=== PATIENT | male | born 1965 | race Two or more races ===

== ENCOUNTER 2019-08-17 10:00 | Outpatient (AMBR) | payer MEDICARE, MEDICAID, SELFPAY ==
--- NOTE | 2019-07-31 11:05 | PT.OIERPT ---
PT OP Initial Eval Patient Information Pediatric or Adult Patient: Adult PT >13 Visit Reasons: neck Medical Diagnosis: Cervical stenosis and DDD Treatment Dx #1: Neck pain Start of Care: 07/31/19 Date of Onset: 07/13/2019 Initial Assessment Subjective 54 y/o male who had a fall and hx of rotator cuff repair on bilateral UE. Patient noticed that after that fall patient started to hurt his neck after and was aggravating. Mostly on the L side of his neck. Patient had pain from cervical area going down to his thoracic spine. Patient has (+) radiculopathy on his LUE. Mostly the pain on his L para cervical area. Patient is complaining of headache as well. The MD mentioned that they are recommending a steroid injection. He also has lower back pain. Patient has constant pain on his cervical area worst at night. At best pain is at 3/10 and at worst is 8/10. He takes norco 3-4times a day but doesn't relieve him completely from pain. Cervical spine CT shows C4-C5 moderate right mild left neural foraminal stenosis. C5-C6 moderate to advanced bilateral neural foraminal stenosis Objective LOM Cervical Rotation towards the L, Left and R lateral flexion. Pain in all movement. R > L; cervical rotation L and R, lateral flexion L and R ; Cervical extension pain > cervical flexion. PS 8/10 at worst and 3/10 (+) rounded shoulder and forward head posture MMT Cervical flexors , extensors, lateral flexors and rotation = 4/5 Assessment Patient will need physical therapy for strengthening of his Cervical muscles. modalities for pain management and manual therapy for stretching and STM. mechanical traction due to patient has (+) radiculopathy on his L UE most probably causes by ganglionic compression and stenosis of his cervical spine. Will see patient for 10-15visits, if there is no significant progress, patient will be referred back to his PCP. Patient verbalized understanding. All questions answered. Short Term and Skilled Nursing Goals 1. to decrease pain on his cervical area to 02/10 x 8 weeks. 2. To increase MMT on his cervical muscles to 5/5 x 8 weeks 3. I with HEP Treatment Plan Thera ex Manual tx Modalities (hmp, estim) Mechanical traction Frequency and Duration 2x/wk x 8 weeks Certification Dates: 07/31/2019 to 10/31/2019
--- NOTE | 2019-08-03 09:07 | PT.ODAYNRPT ---
PT Outpatient Daily Note Date of Service: July 31, 2019 OP Daily Note Pediatric or Adult Patient: Adult PT >13 Visit Reasons: neck Outpatient Physical Therapy Treatment Date: 08/03/19 Subjective: No new complaints Patient has tingling on his L hand Objective: pls see FS Assessment: Patient were given modalities and cervical traction and STM on his para cervical muscles. No increase in symptoms noted. Skin check done after therapy and no redness noted. Plan: To continue POC toward goals Pain Present Currently: Yes Length of Time (minutes) of Treatment: 30 Minutes Office Procedures PT Procedures PT Date of Service: 07/31/19 OP PT Eval Mod Complex 30 minutes: Yes
--- NOTE | 2019-08-07 11:23 | PT.ODAYNRPT ---
PT Outpatient Daily Note Date of Service: August 07, 2019 OP Daily Note Pediatric or Adult Patient: Adult PT >13 Visit Reasons: neck Outpatient Physical Therapy Treatment Date: 08/07/19 Subjective: Neck pain today at 3/10 at rest and during movement is more painful especially when turning to his L Objective: pls see FS Assessment: patient were given Hmp with estim, cervical traction and gentle passive stretching. No increase in pain during therapy session. Plan: to continue POC toward goals Length of Time (minutes) of Treatment: 30 Minutes Office Procedures PT Procedures PT Date of Service: 07/31/19 OP PT Eval Mod Complex 30 minutes: Yes
--- NOTE | 2019-08-10 13:59 | PT.ODAYNRPT ---
PT Outpatient Daily Note Date of Service: August 10, 2019 OP Daily Note Visit Reasons: neck Outpatient Physical Therapy Treatment Date: 08/10/19 Subjective: pt states he was sore from last visit but is not sure which activity made him sore. he said it could be from the stretching since that was new last visit. Objective: see flow sheet. Assessment: withheld from the stretching today to avoid increase in soreness. continued with modalities. pt had no complaints during and after modalities. added new exercises to assist with strengthening and improve mobility. pt does use SPC for ambulation. pt does have uneven gait pattern which causes fall risk. pt was able to complete the treatment with no concerns or questions. advised pt about possible soreness. Plan: continue POC per PT. Length of Time (minutes) of Treatment: 30 Minutes STAVE LOG CUT OFF SAW OPERATOR Service Modifier Method I: Divide the number of min of care provided by the STAVE LOG CUT OFF SAW OPERATOR/JYOTI by the total min of care provided then multiply by 100. If greater than 11 percent modifier is required. Method II: Divide the total time of care provided to patient by 10 (round to the nearest whole number) and add 1 min. to set the minimum time requirement. If treatment total was 60 min., then 10% of 6 min Did STAVE LOG CUT OFF SAW OPERATOR provide more than 10% of the care?: Yes PT CQ modifier applied: CQ Modifier applied Office Procedures PT Procedures PT Date of Service: 08/10/19 OP Electrical Stimul Unattended: Yes Therapeutic Exercise 15 minutes: Yes PT Procedures PT Date of Service: 07/31/19 OP PT Eval Mod Complex 30 minutes: Yes PT Procedures PT Date of Service: 08/03/19 OP Electrical Stimul Unattended: Yes Therapeutic Exercise 15 minutes: Yes PT Procedures PT Date of Service: 08/07/19 OP Electrical Stimul Unattended: Yes Therapeutic Exercise 15 minutes: Yes
--- NOTE | 2019-08-17 12:37 | PTNOTE_ITS ---
PT Outpatient Daily Note Date of Service: August 17, 2019 OP Daily Note Visit Reasons: neck Outpatient Physical Therapy Treatment Date: 08/17/19 Subjective: pt states his L side neck is more tight than the R side. Objective: see flow sheet. Assessment: after e-stim performed PROM. noted the L side is more tight than the R side during stretches. he was having discomfort during the stretches. although they were gentle stretches he was limited mobility. observed good posture in sitting. he was on the scifit with no difficulty. he had no concerns or questions. Plan: continue POC per PT. Length of Time (minutes) of Treatment: 30 Minutes MACHINE MAINTENANCE TECHNICIAN Service Modifier Method I: Divide the number of min of care provided by the MACHINE MAINTENANCE TECHNICIAN/MARINA DRY DOCK MANAGER by the total min of care provided then multiply by 100. If greater than 11 percent modifier is required. Method II: Divide the total time of care provided to patient by 10 (round to the nearest whole number) and add 1 min. to set the minimum time requirement. If treatment total was 60 min., then 10% of 6 min Did MACHINE MAINTENANCE TECHNICIAN provide more than 10% of the care?: Yes PT CQ modifier applied: CQ Modifier applied Office Procedures PT Procedures PT Date of Service: 08/10/19 OP Electrical Stimul Unattended: Yes Therapeutic Exercise 15 minutes: Yes PT Procedures PT Date of Service: 07/31/19 OP PT Eval Mod Complex 30 minutes: Yes PT Procedures PT Date of Service: 08/03/19 OP Electrical Stimul Unattended: Yes Therapeutic Exercise 15 minutes: Yes PT Procedures PT Date of Service: 08/07/19 OP Electrical Stimul Unattended: Yes Therapeutic Exercise 15 minutes: Yes PT Procedures PT Date of Service: 08/17/19 OP Electrical Stimul Unattended: Yes Therapeutic Exercise 15 minutes: Yes
== END 2019-08-22 23:59 | disposition home or self-care (01) ==
PROVIDERS: PCP Nurse Practitioner; Referring Provider Nurse Practitioner; Visit Provider Physical Medicine & Rehabilitation Hospice and Palliative Medicine
DX: M54.2 Cervicalgia (principal); M54.12 Radiculopathy, cervical region; M51.27 Other intervertebral disc displacement, lumbosacral region; M67.48 Ganglion, other site; G89.4 Chronic pain syndrome; M51.06 Intervertebral disc disorders with myelopathy, lumbar region; R51 Headache
CPT/HCPCS: 72148; 97014; 97110; 97162; G0283

== ENCOUNTER 2020-04-22 10:44 | Outpatient (AMBR) | payer MEDICARE, MEDICAID, SELFPAY ==
--- NOTE | 2020-04-22 14:49 | PT.OIERPT ---
PT OP Initial Eval Patient Information Visit Reasons: post op left shoulder Medical Diagnosis: Z47.89 Treatment Dx #1: Left Shoulder Mobility Deficits Treatment Dx #2: Left Shoulder Weakness Start of Care: 04/22/20 Date of Onset: 03/27/20 Initial Assessment Subjective Pt is a 54 y/o male s/p left shoulder arthroscopic surgery 03/27/20 due to shoulder pain. Pt mention that Dr Valenzuela did a decompression and cleaned up from scar tissue from previous shoulder surgery. Pt still has a lot of pain (7/10) with activities. Pt has limitation with overhead motions, lifting, chores, self care, cooking, cleaning, and performing recreational activities. Objective Left Shoulder AROM Flexion: 140 deg Abduction: 105 deg External Rotation: 85 deg Internal Rotation: 50 deg Left Shoulder MMTs: grossly 3-/5 Left Scapula MMTs: grossly 3-/5 Wage And Salary Administrator Strength R: 86 lbs L: 61 lbs Assessment Pt demonstrate left shoulder mobility and strength deficits s/p shoulder surgery leading to decline function. Pt will benefit from physical therapy to increase ROM, strength, and work on shoulder stability. Short Term and Datastage Developer Goals 1) Increase left shoulder AROM WNL in 8 wks to be able to perform overhead activities 2) Increase left shoulder MMTs grossly to 4-/5 in 8 wks to be able to perform chores 3) Increase left scapula MMTs grossly to 3+/5 in 8 wks to be able to perform self care activities 4) Decrease shoulder pain to 2/10 in 8 wks to be able to perform recreational activities 5) Indep with HEP Treatment Plan 1) Manual Therapy 2) Therapeutic Activities 3) Therapeutic Exercises 4) Modalities (ice, heat) Frequency and Duration 2 x wk for 8 wks Certification Dates: 04/22/20 to 07/21/19 Office Procedures PT Procedures PT Date of Service: 04/22/20 OP PT Eval Mod Complex 30 minutes: Yes
== END 2020-04-22 23:59 | disposition home or self-care (01) ==
PROVIDERS: PCP Orthopaedic Surgery; Referring Provider Orthopaedic Surgery; Visit Provider Orthopaedic Surgery
DX: Z47.89 Encounter for other orthopedic aftercare (principal); R53.1 Weakness; M25.512 Pain in left shoulder
CPT/HCPCS: 97162

== ENCOUNTER → 2024-05-11 | Outpatient (BNVA) | payer MEDICARE, MEDICAID, SELFPAY | END | disposition home or self-care (01) | PROVIDERS: PCP Internal Medicine; Referring Provider Internal Medicine; Visit Provider Urology | DX: N40.1 Benign prostatic hyperplasia with lower urinary tract symptoms (principal); R39.12 Poor urinary stream | CPT/HCPCS: 51741; 51798 ==

== ENCOUNTER → 2024-07-28 | Outpatient (CLI) | payer MEDICARE, MEDICAID, SELFPAY ==
[2024-07-28 14:35] LABS: Prostate Specific Antigen 0.32 ng/mL (0-4.00)
== END | disposition home or self-care (01) ==
LOC: COPL 13:09
PROVIDERS: PCP Internal Medicine; Referring Provider Urology; Visit Provider Urology
DX: N40.1 Benign prostatic hyperplasia with lower urinary tract symptoms (principal)
CPT/HCPCS: 36415; 84153

== ENCOUNTER → 2024-08-04 | Outpatient (BNVA) | payer MEDICARE, MEDICAID, SELFPAY | END | disposition home or self-care (01) | PROVIDERS: PCP Internal Medicine; Referring Provider Internal Medicine; Visit Provider Urology | DX: N40.1 Benign prostatic hyperplasia with lower urinary tract symptoms (principal); N13.8 Other obstructive and reflux uropathy; Z80.42 Family history of malignant neoplasm of prostate; E66.9 Obesity, unspecified; Z68.26 Body mass index [BMI] 26.0-26.9, adult | CPT/HCPCS: 81003; 99212; G0463 ==

== ENCOUNTER → 2024-09-22 | Outpatient (CLI) | payer MEDICARE, MEDICAID, SELFPAY ==
[2024-09-22 10:02] LABS: Basophils % (Auto) 0 % (0-2.5); Eosinophils # (Auto) 0.1 Thou/mm3 (0.0-0.5); Eosinophils % (Auto) 1 % (0-10); Hemoglobin 14.5 g/dL (13.5-16.0); Immature Granulocytes % (Auto) 0 % (0-0); Immature Granulocytes Auto 0.02 Thou/mm3 (0.00-0.00); Lymphocytes # (Auto) 2.9 Thou/mm3 (1.0-4.8); Lymphocytes % (Auto) 40 % (10-50); Mean Corpuscular HGB Conc 34.5 g/dl (31.0-37.0); Mean Corpuscular Hemoglobin 31.9 pg (25.0-35.0); Mean Corpuscular Volume 92 fL (80-100); Monocytes # (Auto) 0.5 Thou/mm3 (0.0-0.8); Monocytes % (Auto) 7 % (0-12); Neutrophils # (Auto) 3.7 Thou/mm3 (1.8-7.7); Neutrophils % (Auto) 51 % (37-80); Nucleated Red Blood Cell % 0 /100 WBC (0); Platelet Count 179 Thou/mm3 (140-440); RDW Standard Deviation 44.5 fL (35.1-43.9); Red Blood Count 4.55 Miln/mm3 (4.50-5.90); White Blood Count 7.2 Thou/mm3 (3.8-10.6)
[2024-09-22 10:06] LABS: Glucose Estimated Average 114 mg/dL (80-131); Hemoglobin A1C 5.6 % Hgb (4.8-6.0)
[2024-09-22 10:14] LABS: Vitamin B12 355 pg/mL (211-911); Vitamin D 25 Hydroxy Total 30.6 ng/mL (7.3-40.2)
[2024-09-22 10:20] LABS: Alanine Aminotransferase 13 U/L (10-49); Albumin, Serum 4.3 gm/dL (3.4-4.8); Albumin/Globulin Ratio 1.9 (1.2-2.2); Alkaline Phosphatase 103 U/L (46-116); Anion Gap 10 (7-16); Aspartate Amino Transferase 20 U/L (0-34); BUN/Creatinine Ratio 16 Ratio (12-20); Bilirubin,Total 1.4 mg/dL (0.3-1.2); Blood Urea Nitrogen 16 mg/dL (9-23); Calcium 9.3 mg/dL (8.3-10.6); Calcium (Corrected) 9.3 mg/dL (8.5-10.1); Carbon Dioxide 25.7 mMol/L (20.0-31.0); Cardiac Risk Estimate 3.3 RATIO (4.0-6.7); Chloride 108 mMol/L (98-107); Cholesterol 167 mg/dL (132-200); Globulin 2.3 gm/dL (2.3-3.5); Glucose 113 mg/dL (74-106); HDL Cholesterol 50 mg/dL (40-60); LDL Cholesterol,Calculated 99 mg/dL (0-130); Magnesium 1.8 mg/dL (1.6-2.6); Osmolality,Calculated 289 (275-295); Phosphorous 2.4 mg/dL (2.4-5.1); Potassium 3.7 mMol/L (3.4-5.1); Sodium 144 mMol/L (136-145); Total Protein 6.6 gm/dL (5.7-8.2); Triglycerides 89 mg/dL (30-150); eGFR > 60 See Note
== END | disposition home or self-care (01) ==
LOC: COPL 08:51
PROVIDERS: PCP Internal Medicine; Referring Provider Internal Medicine; Visit Provider Internal Medicine
DX: I10 Essential (primary) hypertension (principal); M25.511 Pain in right shoulder; R53.81 Other malaise
CPT/HCPCS: 36415; 80053; 80061; 82306; 82607; 83036; 83735; 84100; 85025

== ENCOUNTER 2024-12-14 13:57 | Emergency (ER) | payer MEDICARE, MEDICAID, SELFPAY ==
[2024-12-14 14:37] VITALS: BP 156/84; PULSE 97; RESP 26; TEMP 36.4; O2SAT 97
--- NOTE | 2024-12-14 14:42 | XR_ITS ---
Examination: CT abdomen with intravenous contrast CT pelvis with intravenous contrast 2-D coronal reconstructions 2-D sagittal reconstructions Date and time of exam:December 14, 2024, 1631 hours Comparison February 25, 2021 INDICATIONS: Left-sided abdominal pain radiating to the flank beginning 3 days ago, history kidney stones. CTDI: vol (mGy) 6.45. DLP: (mGycm) 404. Technique: Multiple axial sections of the abdomen and pelvis have been obtained. 64 slice high-resolution scanner used. 3 mm axial sections have been obtained, post intravenous injection 60 cc Isovue 370. 2-D sagittal, coronal reconstructions obtained. Low dose protocols were performed. One or more of the following dose reduction techniques were used; automated exposure control, adjustment of the mA and/or KV according to patient size, use of iterative reconstruction technique. Findings: No focal liver or splenic lesions No gallstones no pancreatic or adrenal mass No renal or ureteral calculi, no hydronephrosis Aorta normal size No bowel obstruction Normal appendix No diverticulitis No significant prostatomegaly No bladder mass or bladder calculi Grade 1 spondylolisthesis of L5 on S1 with advanced degenerative disc disease at the lower 3 lumbar levels IMPRESSION: No renal or ureteral calculi, no hydronephrosis Normal appendix No bowel obstruction or diverticulitis. No bladder mass or bladder calculi
--- NOTE | 2024-12-14 14:42 | EKG_ITS ---
[facility] Test Date: 2024-12-14 Pat Name: BEST BAPTISTE Department: Room: - Gender: Male Process Artist: : 1965 Requested By: Cyndy Olvera Order Number: [id number] Reading MD: Cyndy Olvera Measurements Intervals [place] Rate: 90 P: 53 KS: 128 QRS: 2 QRSD: 101 T: 44 QT: 390 QTc: 479 Interpretive Statements SINUS RHYTHM Compared to ECG 03/26/2020 10:01:18 Short [place] interval no longer present /store/S0/[id number]/ecg/[id number].pdf
--- NOTE | 2024-12-14 14:44 | PD.EDABDPN ---
ED Abdominal Pain RME/HPI General Chief Complaint: Abdominal Pain Stated complaint: Left side flank pain X 3 days Time seen by provider: 12/14/24 14:38 Arrival date/time: 12/14/24 13:57 RME / HPI RME / HPI narrative: 59-year-old male patient with no significant medical history came in for evaluation regarding left lower quadrant pain. Onset of symptoms for the last 3 days as left flank pain getting worse now radiating to the left lower abdomen, described as crampy, severity 10 out of 10 associated with nausea. Patient denies any hematuria dysuria fever or other complaints. No medications taken prior to arrival. Related Data Home Medications ?Medication ?Instructions ?Recorded ?Confirmed omeprazole 20 mg capsule,delayed 20 mg PO QDAY ##0 03/18/15 08/04/24 release tamsulosin 0.4 mg capsule 0.4 mg PO QDAY ##90 01/06/16 08/04/24 fluticasone propionate 50 1 spray intranasal QDAY 06/24/18 08/04/24 mcg/actuation nasal spray,suspension (Flonase Allergy Relief) hydrocodone 10 mg-acetaminophen 1 tab PO QID PRN Pain 01/03/19 08/04/24 325 mg tablet ([place]) Allergies Allergy/AdvReac Type Severity Reaction Status Date / Time diclofenac (From Voltaren) Allergy Rash Verified 12/14/24 14:01 Review of Systems Review of Systems Narrative Review of Systems: Review of system reviewed and within normal limits except mentioned in HPI ED Exam Narrative Physical exam: VITAL SIGNS: Reviewed. GENERAL APPEARANCE: Alert and interactive, follows commands, no acute distress, HEAD AND FACE: Non-traumatic. ENT: PERRL, pink conjunctivitis, eyelid no trauma, Mucous membrane moist. NECK: Supple, nontender, no nuchal rigidity. CHEST: No tenderness, no crepitus, no paradoxical movement, no retractions. LUNGS: Clear, well ventilated, symmetric, no rales, no wheezing, no ronchi, no stridor, good breath sounds bilaterally. HEART: Regular rate, regular rhythm, no murmur, no gallops. ABDOMEN: Soft, positive bowel sounds, nondistended, no guarding, left lower abdominal tenderness, no rebound, no masses, RECTAL: Deferred. GENITAL: Deferred. NEUROLOGICAL: Gross motor function intact sensory function intact, Appropriate for age. MUSCULOSKELETAL: low back nontender, full range of motion. EXTREMITIES: Nontender, full range of motion. SKIN: Color pink, dry, no rash, no lacerations, no abrasions, no contusions. LYMPHATICS: Deferred. Course Quality Measures none Orders Category Date Time Status CT Screening NOW Care 12/14/24 14:43 Active EKG (ED ONLY) *Do not use* NOW Care 12/14/24 14:[address] abdomen pelvis w con Stat Exams 12/14/24 14:42 Completed EKG (ED Only) Stat Exams 12/14/24 14:42 Draft CBC Stat Lab 12/14/24 14:56 Completed Comprehensive Metabolic Panel Stat Lab 12/14/24 14:56 Completed Lipase Stat Lab 12/14/24 14:56 Completed Prothrombin Time with INR Stat Lab 12/14/24 14:56 Completed UA, C/S IF [Urinalysis, C/S if Indicated] Stat Lab 12/14/24 18:15 Completed HYDROmorphone INJ [Dilaudid Inj] Med 12/14/24 17:13 Discontinued 2 mg IVP X1 ONE Morphine Inj Med 12/14/24 14:44 Discontinued 4 mg IVP X1 ONE Ondansetron Inj [Zofran Inj] Med 12/14/24 14:42 Discontinued 4 mg IVP X1 ONE Potassium Chloride [K-Dur] Med 12/14/24 16:10 Discontinued 40 meq PO X1 ONE Ringers Lactated 1000 ml [Lactated Ringers] 1,000 ml Med 12/14/24 14:43 Discontinued IV 999 mls/hr Vital Signs Vital signs: Vital Signs Temperature 97.6 F 12/14/24 14:37 Pulse Rate 97 12/14/24 14:37 Respiratory Rate 26 H 12/14/24 14:37 Blood Pressure 156/84 H 12/14/24 14:37 Pulse Oximetry (%) 97 12/14/24 14:37 Oxygen Delivery Method Room Air 12/14/24 14:37 Abdominal Pain MDM MDM Narrative MDM Narrative:: 59-year-old male patient with no significant medical history came in for evaluation regarding left lower quadrant pain. Onset of symptoms for the last 3 days as left flank pain getting worse now radiating to the left lower abdomen, described as crampy, severity 10 out of 10 associated with nausea. Patient denies any hematuria dysuria fever or other complaints. No medications taken prior to arrival. Patient's workup today all came back normal. Except for slight leukocytosis. CT scan of the abdomen and pelvis also came back unremarkable. Patient to receive IV fluids, Dilaudid morphine, with complete resolution of symptoms. Probably the patient passed a kidney stone which we did not see in CT scan. Prior to discharge patient told me that his pain is totally gone Patient data External records reviewed:: None Clinical information provided by:: patient Social determinants that could affect healthcare access:: none Patient has the following chronic illnesses:: None How is presenting disease/condition affected by chronic disease/condition?: no chronic disease Evaluation data The following diagnostics were reviewed and interpreted by me:: lab results and radiology exam(s) Lab and/or radiology exams considered but not ordered:: None Interpretation Summary: See results in [facility] Medications / Prescriptions Medications or Prescriptions considered but not ordered:: None Medication administrations:: Medication Administration History Discontinued Medications Hydromorphone HCl (Hydromorphone Inj 2 Mg/Ml Vial) 2 mg IVP X1 ONE Stop: 12/14/24 17:14 Last Admin: 12/14/24 17:21 Dose: 2 mg Documented By: URBAN Lactated Ringer's (Lactated Ringers) 1,000 mls @ 999 mls/hr IV .Q1H1M ONE Stop: 12/14/24 15:43 Last Infusion: 12/14/24 16:28 Dose: Infused Documented By: Admin: 12/14/24 15:36 Dose: 999 mls/hr Documented By: Infusion: 12/14/24 15:36 Dose: Infused Documented By: Admin: 12/14/24 15:04 Dose: 999 mls/hr Documented By: BLANCA Morphine Sulfate (Morphine Sulf Inj 10 Mg/Ml Vial) 4 mg IVP X1 ONE Stop: 12/14/24 14:45 Last Admin: 12/14/24 15:43 Dose: 4 mg Documented By: FERNANDEZ Ondansetron HCl (Ondansetron Inj 2 Mg/Ml Inj 2 Ml) 4 mg IVP X1 ONE; Protocol Stop: 12/14/24 14:43 Last Admin: 12/14/24 15:35 Dose: 4 mg Documented By: FERNANDEZ Potassium Chloride (Potassium Chloride 20 Meq Tabcr) 40 meq PO X1 ONE Stop: 12/14/24 16:11 Last Admin: 12/14/24 17:15 Dose: 40 meq Documented By: FRIAS2 Potassium replacement, Zofran, morphine Dilaudid IV fluids Consultations Consultation(s) initiated? (list below): No Diagnosis Differential diagnosis abdominal pain: abdominal pain, calculus of kidney, constipation and diverticulitis Most likely diagnosis given after review of the tests above:: Abdominal pain Admission Indicated Admission indicated?: not indicated Admission Request Was there a request for admission?: No Disposition Plan Disposition Plan: Discharge Discharge Attestation Discharge Attestation: The patient and all family members were given an opportunity to ask questions and understood the discharge instructions. Discharge instructions specifically effects, indications for sooner follow up or return to the emergency department, and the expected course of current diagnosis. Patient condition: Stable Discharge Plan Plan Patient Disposition: HOME (Self Care) Discharge Disposition comment: Stable Prescriptions/Referrals Prescriptions/Med Rec: No Action omeprazole 20 MG capsule,delayed release(DR/EC) 20 mg PO QDAY Qty: 0 tamsulosin 0.4 mg Capsule 0.4 mg PO QDAY Qty: 90 fluticasone propionate [Flonase Allergy Relief] 50 mcg/actuation [place],Suspension 1 spray INTRANASAL QDAY hydrocodone-acetaminophen [[place]] 10-325 mg Tablet 1 tab PO QID PRN (Reason: Pain) Referrals: Susan Jaeger [Primary Care Provider] - In 1 week Problem List Clinical Impression: Abdominal pain Patient/Caregiver Discharge Instructions Discharge Activity: activity as tolerated Education Materials: Abdominal Pain Additional Instructions: Thank you for the opportunity for serving you today. You are stable for discharged . You are advised to: Follow-up with your PCP in 1 to 2 days Return to ED for worsening of symptoms Increase oral fluids Take [id number] Tylenol as needed for pain Print Language: Tristanian Stand Alone Forms: Kira Award Info., Patient Portal Info Letter PA/NESTOR Supervising Physician ENRIKE/NESTOR Supervising Physician: MD Ej
[2024-12-14] MEDS: RINGERS LACTATED 1000 ML 1,000 ML 999 ML IV ×2 (15:04→15:36)
[2024-12-14 15:11] LABS: Basophils # (Auto) 0.0 Thou/mm3 (0.0-0.2); Basophils % (Auto) 0 % (0-2.5); Eosinophils # (Auto) 0.0 Thou/mm3 (0.0-0.5); Eosinophils % (Auto) 0 % (0-10); Hematocrit 42.1 % (41.0-53.0); Hemoglobin 15.0 g/dL (13.5-16.0); Immature Granulocytes Auto 0.03 Thou/mm3 (0.00-0.00); Lymphocytes # (Auto) 3.3 Thou/mm3 (1.0-4.8); Lymphocytes % (Auto) 26 % (10-50); Mean Corpuscular HGB Conc 35.6 g/dl (31.0-37.0); Mean Corpuscular Hemoglobin 32.5 pg (25.0-35.0); Mean Corpuscular Volume 91 fL (80-100); Monocytes # (Auto) 0.7 Thou/mm3 (0.0-0.8); Monocytes % (Auto) 5 % (0-12); Neutrophils # (Auto) 8.7 Thou/mm3 (1.8-7.7); Neutrophils % (Auto) 68 % (37-80); Nucleated Red Blood Cell # 0.00 Thou/mm3 (0.00-0.00); Nucleated Red Blood Cell % 0 /100 WBC (0); Platelet Count 218 Thou/mm3 (140-440); RDW Standard Deviation 42.5 fL (35.1-43.9); Red Blood Count 4.61 Miln/mm3 (4.50-5.90); White Blood Count 12.8 Thou/mm3 (3.8-10.6)
[2024-12-14 15:23] LABS: INR 1.0 (0.9-1.3); Prothrombin Time 10.8 Seconds (9.0-12.2)
[2024-12-14] MEDS: ONDANSETRON INJ 2 MG/ML INJ 2 ML 4 MG IVP (15:35)
[2024-12-14 15:37] LABS: Alanine Aminotransferase 9 U/L (10-49); Albumin, Serum 4.5 gm/dL (3.4-4.8); Albumin/Globulin Ratio 1.9 (1.2-2.2); Alkaline Phosphatase 108 U/L (46-116); Anion Gap 17 (7-16); Aspartate Amino Transferase 16 U/L (0-34); BUN/Creatinine Ratio 9 Ratio (12-20); Bilirubin,Total 0.8 mg/dL (0.3-1.2); Blood Urea Nitrogen 9 mg/dL (9-23); Calcium 9.3 mg/dL (8.3-10.6); Calcium (Corrected) 9.3 mg/dL (8.5-10.1); Carbon Dioxide 18.8 mMol/L (20.0-31.0); Chloride 108 mMol/L (98-107); Creatinine (Component) 1.0 mg/dL (0.6-1.3); Globulin 2.4 gm/dL (2.3-3.5); Glucose 113 mg/dL (74-106); Lipase 31 U/L (12-53); Osmolality,Calculated 286 (275-295); Potassium 3.3 mMol/L (3.4-5.1); Sodium 144 mMol/L (136-145); Total Protein 6.9 gm/dL (5.7-8.2); eGFR > 60 See Note
[2024-12-14] MEDS: MORPHINE SULF INJ 10 MG/ML VIAL 4 MG IVP (15:43)
[2024-12-14] MEDS: HYDROmorphone INJ 2 MG/ML VIAL IVP (17:21)
[2024-12-14 18:22] LABS: Collection Type, Urine Clean Catch; Squamous Epithelial Cell,Urine 0 /hpf (0-5); WBC,Urine 0 /hpf (0-5)
[2024-12-14 18:50] LABS: Bilirubin,Urine Negative (Negative); Blood,Urine Negative (Negative); Clarity,Urine Clear (Clear/Hazy); Color,Urine Colorless (Lt Yel-Yel); Culture Indicated,Urine Not Indicated; Glucose, Urine Negative (Negative); Ketones,Urine 1+ (Negative); Leukocyte Esterase,Urine Negative (Negative); Nitrite,Urine Negative (Negative); PH,Urine 8.0 (5.0-7.0); Protein,Urine Negative (Neg - Trace); RBC,Urine 1 /hpf (0-3); Specific Gravity,Urine 1.039 (1.001-1.035); Urobilinogen,Urine Negative mg/dL (0.0-1.0)
[2024-12-14 19:56] VITALS: BP 123/68; PULSE 77; RESP 16; TEMP 36.7; O2SAT 96
== END 2024-12-14 19:57 | disposition home or self-care (01) ==
PROVIDERS: Emergency Provider Nurse Practitioner Family; PCP Internal Medicine
DX: R10.32 Left lower quadrant pain (principal)
CPT/HCPCS: 36415; 74177; 80053; 81001; 83690; 85025; 85610; 93005; 96361; 96374; 96375; 99283; A4649; J1171; J2270; J2405; J7120; Q9967; A9270

== ENCOUNTER → 2025-03-14 | Outpatient (CLI) | payer MEDICARE, MEDICAID, SELFPAY ==
--- NOTE | 2025-03-14 12:20 | XR_ITS ---
Examination: Hand, left 3 views Technique: Hand AP, oblique, lateral 3 views Date and time of exam: March 14, 2025 1236 hours INDICATIONS: Left hand first digit pain 2 months FINDINGS: Moderate osteopenia Mild to moderate osteoarthritis first carpometacarpal joint Mild osteoarthritis distal interphalangeal joints second through fifth digits and interphalangeal joint first digit No erosive arthritis No fractures IMPRESSION: Osteoarthritis as above, most prominent first carpometacarpal joint
== END | disposition home or self-care (01) ==
PROVIDERS: PCP Internal Medicine; Referring Provider Internal Medicine; Visit Provider Internal Medicine
DX: M18.12 Unilateral primary osteoarthritis of first carpometacarpal joint, left hand (principal)
CPT/HCPCS: 73130

== ENCOUNTER → 2025-04-26 | Outpatient (CLI) | payer MEDICARE, MEDICAID, SELFPAY ==
[2025-04-26 11:29] LABS: Albumin, Serum 4.6 gm/dL (3.4-4.8); Anion Gap 9 (7-16); BUN/Creatinine Ratio 13 Ratio (12-20); Blood Urea Nitrogen 15 mg/dL (9-23); Calcium 9.1 mg/dL (8.3-10.6); Calcium (Corrected) 9.1 mg/dL (8.5-10.1); Carbon Dioxide 25.9 mMol/L (20.0-31.0); Chloride 105 mMol/L (98-107); Creatinine (Component) 1.2 mg/dL (0.6-1.3); Glucose 123 mg/dL (74-106); Osmolality,Calculated 281 (275-295); Phosphorous 2.2 mg/dL (2.4-5.1); Potassium 3.8 mMol/L (3.4-5.1); Sodium 140 mMol/L (136-145); eGFR > 60 See Note
== END | disposition home or self-care (01) ==
LOC: COPL 10:11
PROVIDERS: PCP Internal Medicine; Referring Provider Nurse Practitioner Family; Visit Provider Nurse Practitioner Family
DX: R94.4 Abnormal results of kidney function studies (principal)
CPT/HCPCS: 36415; 80069

== ENCOUNTER → 2025-04-27 | Outpatient (CLI) | payer MEDICARE, MEDICAID, SELFPAY ==
--- NOTE | 2025-04-27 13:00 | XR_ITS ---
Examination: Abdomen sonogram, Limited Date and time of exam: April 27, 2025, 1306 hours INDICATIONS: Right and left abdomen palpable lumps 3 months Technique: Real-time oviedo scale transabdominal sonographic images of the upper abdomen obtained. Findings: Mass in the umbilical region, hyperechoic 1.3 x 0.6 x 1.6 cm Mass in the right abdomen, hyperechoic, 6 x 4 x 5 mm IMPRESSION: Findings most consistent with subcutaneous lipomas, consider 6-month follow-up ultrasound soft tissue
== END | disposition home or self-care (01) ==
PROVIDERS: PCP Internal Medicine; Referring Provider Internal Medicine; Visit Provider Internal Medicine
DX: K42.9 Umbilical hernia without obstruction or gangrene (principal)
CPT/HCPCS: 76705

== ENCOUNTER → 2025-05-03 | Outpatient (CLI) | payer MEDICARE, MEDICAID, SELFPAY ==
--- NOTE | 2025-05-03 15:00 | XR_ITS ---
Examination: CT abdomen, without intravenous contrast. CT pelvis, without intravenous contrast. CT abdomen, with intravenous contrast. CT pelvis, with intravenous contrast. 2-D sagittal coronal reconstructions. Date and time of exam: May 03, 2025, 1327 hours, comparison December 14, 2024 INDICATIONS: Right lower abdominal pain beginning 2 weeks ago CTDI: vol (mGy) 13.5 DLP: (mGycm) 855 Technique: Multiple 3.0 axial images of the abdomen and pelvis without intravenous contrast, 3.0 mm slice thickness. Multiple 3.0 postcontrast images abdomen and pelvis also obtained, post intravenous injection 60 cc Isovue 370 2-D sagittal and coronal reconstructions. Low dose protocols were performed. One or more of the following dose reduction techniques were used; automated exposure control, adjustment of the mA and/or KV according to patient size, use of iterative reconstruction technique. Findings: No focal liver or splenic lesions Contracted gallbladder No pancreatic or adrenal mass No renal or ureteral calculi, no hydronephrosis Aortic calcification no aneurysmal dilatation Normal appendix No bowel obstruction Colonic diverticulosis, no diverticulitis Bladder intact Mild prostatomegaly Fat-containing left inguinal hernia Grade 1 spondylolisthesis L5 on S1 Advanced degenerative disc disease lower 3 lumbar levels IMPRESSION: Normal appendix No renal or ureteral calculi, no hydronephrosis
== END | disposition home or self-care (01) ==
PROVIDERS: Referring Provider Nurse Practitioner Family; Visit Provider Nurse Practitioner Family
DX: R10.31 Right lower quadrant pain (principal); K42.9 Umbilical hernia without obstruction or gangrene
CPT/HCPCS: 74178; A4649; Q9967